=== PATIENT | female | born 1995 | race Caucasian/White ===

== ENCOUNTER → 2017-12-14 | Outpatient (CLI) | payer OTHER ==
[~2017-12-14] MED LIST: DOCU100 PO; EXPECTA PRENAT1 EACH; HYDR1TAB94 PO; IBUP800 PO; METR500 PO; PROM25 PO
[2017-12-15 10:14] LABS: Source Vaginal/Cervical
== END | disposition home or self-care (01) ==
LOC: LAB 16:44
PROVIDERS: Obstetrics & Gynecology
DX: Z36.89 Encounter for other specified antenatal screening (principal)
CPT/HCPCS: 87491; 87591; G0123

== ENCOUNTER → 2018-05-17 | Outpatient (CLI) | payer OTHER ==
[~2018-05-17] MED LIST changes: -DOCU100 PO; -EXPECTA PRENAT1 EACH; -HYDR1TAB94 PO; -IBUP800 PO
== END | disposition home or self-care (01) ==
LOC: LAB SHORT 13:21 → LAB 13:21
DX: Z34.81 Encounter for supervision of other normal pregnancy, first trimester (principal)
CPT/HCPCS: 87081; 87653